=== PATIENT | male | born 1995 | race Caucasian/White ===

== ENCOUNTER 2021-01-04 15:36 | Emergency (ER) | payer MEDICAID ==
[~2021-01-04] VITALS: Ht 172.7 cm; Wt 65.8 kg
[2021-01-04] MEDS ORDERED: PENICILLIN V P500 MG PO (16:55)
== END 2021-01-04 17:07 | disposition home or self-care (01) ==
LOC: ED 15:36
DX: J03.90 Acute tonsillitis, unspecified (principal); F17.200 Nicotine dependence, unspecified, uncomplicated
CPT/HCPCS: 99283